=== PATIENT | female | born 2000 | race Caucasian/White ===

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

== ENCOUNTER 2021-09-14 12:28 | Emergency (ER) | payer OTHER ==
[2021-09-14 13:21] LABS: HEMOGLOBIN 12.7 gm/dl (12.3-15.3); RED BLOOD COUNT 4.25 M/UL (4.00-5.10)
[2021-09-14 13:40] LABS: BUN/CREATININE RATIO 23 (0-10)
[2021-09-14] MEDS ORDERED: OMNICEF 300 MG300 MG PO (16:25)
[2021-09-14] MEDS ORDERED: IBUPROFEN600 MG PO (16:26)
== END 2021-09-14 16:57 | disposition home or self-care (01) ==
LOC: ER1 12:28
PROVIDERS: Emergency Medicine
DX: N39.0 Urinary tract infection, site not specified (principal)
CPT/HCPCS: 71045; 80053; 81001; 84703; 85025; 85379; 87086; 96374; 96375; 99284; J0696; J2270; J2405